=== PATIENT | female | born 1995 | race Caucasian/White ===

== ENCOUNTER 2017-01-12 16:36 | Inpatient (IN) | payer OTHER ==
[~2017-01-12 16:36] MED LIST: ISOVUE-370 76%-LOCM 1 ML ONE
[2017-01-12] MEDS ORDERED: Benzonatate 100 MG CAP ONE (16:57)
[2017-01-12] MEDS ORDERED: Azithromycin 500 MG VIAL ONE (17:38)
--- NOTE | 2017-01-12 17:38 | RAD ---
PA AND LATERAL CHEST X-RAY: 01/12/17 HISTORY: Sore throat and cough. Nasal congestion. Bodyaches. FINDINGS: There is focal area of increased patchy opacity seen within the left lower lobe as well as in the re gion of the lingula suggesting pneumonia. The right lung is clear. The cardiac silhouette and pulmon rosalind vasculature are within normal limits. Osseous structures are intact. IMPRESSION: Right middle lobe and lingular pneumonia. Followup to complete resolution is recommended. POS: [facility]
[2017-01-12 17:55] LABS: #Basophils 0.1 thou/uL (0.0-0.2); #Lymphocytes 1.1 thou/uL (1.20-3.40); #Monocytes 0.4 thou/uL (0.11-0.59); #Neutrophils 7.2 thou/uL (1.40-6.50); %Basophils 0.8 % (0.0-1.0); %Eosinophils 0.4 % (0.0-10.0); %Lymphocytes 12.6 % (28.0-48.0); %Monocytes 4.1 % (0.0-4.0); Hematocrit 37.5 % (36.0-47.0); Mean Platelet Volume 8.5 fL (7.4-10.4); Red Blood Cell (RBC) Count 4.45 mill/uL (4.00-5.20); White Blood Cell (WBC) Count 8.7 thou/uL (4.8-10.8)
[2017-01-12 18:00] LABS: Lactic Acid - Sepsis 0.9 mmol/L (0.5-2.2)
[2017-01-12 18:04] LABS: Anion Gap 14 mmol/L (10-20); BUN (Urea Nitrogen) 5 mg/dL (7.0-18.7); Calc. Creatinine Clearance 0 mL/min (70-130); Calcium 8.4 mg/dL (7.8-10.44); Carbon Dioxide 19 mmol/L (22-29); Chloride 105 mmol/L (98-107); Estimated GFR-MDRD Greater than 90
[2017-01-12] MEDS ORDERED: Ondansetron ODT 4 MG TAB SL PRN (19:17)
[2017-01-12] MEDS ORDERED: Ondansetron HCl/PF 4 MG/2 ML Vial IVP PRN ×2 (19:17→19:35)
[2017-01-12] MEDS ORDERED: Acetaminophen 325 MG TAB PO PRN ×2 (19:17→19:35)
[2017-01-12] MEDS ORDERED: Sodium Chloride 0.9% 1,000 ML IV SCH (19:30)
--- NOTE | 2017-01-12 19:32 | PDOC.EVN ---
Event Note - Event Note Event Note: [id number] h&p dictated 1. Pneumonia 2. Nausea and vomiting 3. H/O Asthma 4. Metabolic acidosis 5. h/o Anxiety plan: see orders
[2017-01-12] MEDS ORDERED: HYDROcodone/Acetaminophen 5/325 mg Tablet PO PRN (19:35)
[2017-01-12] MEDS: Enoxaparin Sodium 40 MG/0.4 ML SYRINGE SC SCH (20:16)
[2017-01-12] MEDS: cefTRIAXone\\ROCEPHIN 1 GM in Sodium Chloride 0.9% 100 ML IVPB SCH (20:18)
[2017-01-12] MEDS: Sodium Chloride 0.9% 1,000 ML IV SCH (21:00)
[2017-01-12 21:34] VITALS: BMI 32.0
[2017-01-12 21:36] LABS: LegU Control Bar Appear? YES (CONTROL BAR); LegionellaU Control Bkground? CLEAR/WHITE (CLR/WHITE); Strp pneuU Control Background? CLEAR/WHITE (CLR/WHITE); Strp pneumo Control Bar Appear YES (CONTROL BAR)
[2017-01-13] MEDS: Sodium Chloride 0.9% 1,000 ML IV SCH ×4 (03:47→18:47)
--- NOTE | 2017-01-13 06:04 | HP ---
DATE OF ADMISSION: 01/12/2017 CHIEF COMPLAINT: Fever, cough, vomiting. HISTORY OF PRESENT ILLNESS: Patient is a 21-year-old female started feeling sick on Monday, then sh e started vomiting numerous episodes and then having sore. Patient went to a PCP and patient was di agnosed having strep throat, so patient was started on cefdinir. Patient's symptoms got worse on , so she went to Urgent Care and suspected possible flow so patient was discharged on p.o. from Urgent Care. Today, patient started feeling worsening body aches, fever, chills, and cou gh, cough was with sputum production, yellow in color, onset of chest congestion also, complains of fever. The patient went to outside ER. In the outside ER, the patient was diagnosed of a pneumonia and the patient was transferred here. The patient complained of chest pain from coughing. Denies any dizziness, complains of generalized body aches, denies any diarrhea, denies any bloody stools, d enies any sick contacts, positive for strep throat exposures in the [employer]. Complains of a headach e also, mild in intensity. Headache is from all the coughing. Denies any other complaints at this time. PAST MEDICAL HISTORY: Asthma, history of pneumonia, and anxiety. PAST SURGICAL HISTORY: Ankle surgery, tonsillectomy, adenoidectomy, appendectomy. SOCIAL HISTORY: Reviewed. MEDICATIONS: Reviewed. FAMILY HISTORY: Positive for high blood pressure and COPD. REVIEW OF SYSTEMS: Constitutional: Generalized body aches. Positive for fever. Positive for chil ls. Eyes: No vision problems. Ears: Denies hearing loss. Neck: Denies neck pain. oral cavity po sitive for sore throat. Cardiovascular system: Denies any palpitations. Respiratory system: Posit kathy for pleuritic pain. Positive for cough, positive for chest congestion. Gastrointestinal: Posi tive for nausea, vomiting. Musculoskeletal: Generalized body aches. Integumentary: Denies any ra sh. Psychiatric: No anxiety at this time. Cranial nerve system: Denies syncope. All other review of systems are reviewed and are negative. PHYSICAL EXAMINATION: VITAL SIGNS: At the time of H and P performed, pulse ox 94% on room air, 99.7, blood pressure is 10 4/70. GENERAL: The patient appears tired. HEENT: Anterior nares patent. Nose is normal. Ears normal. Teeth intact. Tongue is moist. NECK: Supple, no JVD. CARDIOVASCULAR SYSTEM: S1, S2 present, tachycardic. No murmurs, no rubs, no gallops. RESPIRATORY SYSTEM: Right side, diminished breath sounds present. Left side positive for crackles. No rhonchi, no wheezing. GASTROINTESTINAL: Abdomen is soft, nontender, no guarding, no organomegaly, no masses felt. MUSCULOSKELETAL: No edema. INTEGUMENTARY: No rashes seen. PSYCHIATRIC: Mood is appropriate at this time. NEUROLOGIC SYSTEM: Cranial nerves intact. Follows commands. Strength intact, sensory intact. LABORATORY DATA: At the time of H and P performed, sodium 134, potassium 3.7, chloride 105, CO2 19, BUN of 5, creatinine 0.77. White count 8.7, hemoglobin 13.2, platelet count 210. Chest x-ray posi tive for right middle lobe and lingular pneumonia. ASSESSMENT AND PLAN: The patient is a 21 years old female: 1. Pneumonia. The patient is already an outpatient cefdinir, still not improving. We will go ahea d and start the patient on Levaquin and also on Rocephin IV q.24 h. We will monitor the patient clos rose. We will send blood cultures and sputum culture and sensitivity. We will do CT chest also, and we will consult pulmonary to evaluate the patient. 2. Metabolic acidosis, probably from decreased p.o. intake. Plan to start patient on IV fluids. M onitor bicarbonate level, repeat BMP in a.m. 3. History of asthma. Continue p.r.n. breathing treatments. 4. History of anxiety. Continue anxiolytics. 5. Headache, nausea, and vomiting. P.r.n. antiemetics and p.r.n. pain meds. The case was discussed in detail with the patient. Patient is FULL CODE.
--- NOTE | 2017-01-13 08:29 | CT ---
PRELIMINARY REPORT/[facility]/EMERGENCY AFTER HOURS PROCEDURE: EXAM: CT Chest With Intravenous Contrast CLINICAL HISTORY: 21 years old, female; Condition or disease; Other: Pnuemonia TECHNIQUE: Axial computed tomography images of the chest with intravenous contrast. Coronal reformatted images were created and reviewed. CONTRAST: 100 mL of ISOVUE administered intravenously. COMPARISON: No relevant prior studies available. FINDINGS: Lungs: There is airspace opacity in the left lower lobe with air bronchograms consistent with left l ower lobe pneumonia. Pleural space: Unremarkable. No pneumothorax. No significant effusion. Heart: Unremarkable. No cardiomegaly. No significant pericardial effusion. Bones/joints: Unremarkable. No acute fracture. No dislocation. Soft tissues: Unremarkable. Vasculature: Unremarkable. No thoracic aortic aneurysm. Lymph nodes: Unremarkable. No enlarged lymph nodes. IMPRESSION: There is airspace opacity in the left lower lobe with air bronchograms consistent with left lower lo be pneumonia. Thank you for allowing us to participate in the care of your patient. Dictated and Authenticated by: Jose Rosado MD 01/13/2017 12:13 AM Central Time ([place] \T\ [place]) FINAL REPORT CT CHEST WITH IV CONTRAST: I agree with the preliminary report given by Dr. Jose Rosado of [facility]. POS: [facility]
[2017-01-13] MEDS: Azithromycin 250 MG TAB PO SCH (09:16)
[2017-01-13] MEDS: cefTRIAXone\\ROCEPHIN 1 GM in Sodium Chloride 0.9% 100 ML IVPB SCH ×2 (09:17→20:07)
--- NOTE | 2017-01-13 10:25 | CON ---
DATE OF CONSULTATION: 01/13/2017 REASON FOR CONSULTATION: Pneumonia. 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 She developed documented strep throat earlier in the week, manifested by a sore throat and high fever. She was prescribed antibiotics, but was unable to take more than a dose because of vomiting and general malaise. She has developed cough, congestion, and productive sputum. A CT scan obtained last night demonstrated left lower lobe pneumonia. PAST MEDICAL HISTORY: Asthma and anxiety. PAST SURGICAL HISTORY: Ankle surgery, tonsillectomy, and appendectomy. SOCIAL HISTORY: Nonsmoker. Does not consume alcohol. MEDICATIONS: She is on Lexapro, control pills, and an albuterol inhaler. FAMILY MEDICAL HISTORY: Remarkable for COPD and hypertension. REVIEW OF SYSTEMS: She has had fever, chills, some nausea, some vomiting, no chest pain, no hemoptysis. No hematemesis, melena, hematochezia, hematuria, or dysuria. PHYSICAL EXAMINATION: VITAL SIGNS: Temperature 98.7, pulse 89, respirations 18, O2 saturation 98%, blood pressure 113/68. GENERAL: She is awake and alert, and in no distress. HEENT: Unremarkable. NECK: No JVD. LUNGS: Few crackles left base, right side clear. CARDIAC: S1, S2 regular. ABDOMEN: Soft, nontender. EXTREMITIES: No clubbing, cyanosis, or edema. NEUROLOGIC: Grossly intact throughout. LABORATORY DATA AND IMAGING: White blood cell count 8.7, hematocrit 37, platelet count 210. Sodium 134, potassium 3.7, chloride 105, CO2 19, BUN 5, creatinine 0.7, glucose 102. CT result is as noted above. ASSESSMENT: 1. Community-acquired pneumonia - I would not consider this as a treatment failure as she was unable to take much of her antibiotics for Strep throat. 2. PENICILLIN allergy. RECOMMENDATIONS: I would treat her with Levaquin or Zithromax for a total of 5- 7 days. MTDD
--- NOTE | 2017-01-13 15:56 | PDOC.PN ---
- Subjective Encounter Start Date: 01/13/17 Encounter Start Time: 13:25 Subjective: breathing better - Objective MAR Reviewed: Yes Vital Signs & Weight: Vital Signs (12 hours) Temp Pulse Resp BP BP Pulse Ox 01/13/17 15:48 80 20 01/13/17 11:52 97.9 F 99 16 117/72 95 01/13/17 11:20 68 20 01/13/17 08:00 98.7 F 89 18 98 01/13/17 07:32 98 01/13/17 07:29 84 20 98 01/13/17 04:00 98.8 F 89 16 113/68 95 Weight Weight 198 lb 6.656 oz Result Diagrams: 01/12/17 17:35 01/12/17 17:35 Phys Exam - Physical Examination HEENT: PERRLA, moist MMs Neck: no JVD, supple Respiratory: no wheezing, no rales Cardiovascular: RRR, no significant murmur Gastrointestinal: soft, non-tender, positive bowel sounds Musculoskeletal: no edema, pulses present Neurological: non-focal, moves all 4 limbs Psychiatric: A&O x 3 Dx/Plan (1) PNA (pneumonia) Code(s): J18.9 - PNEUMONIA, UNSPECIFIED ORGANISM Status: Acute Qualifiers: Pneumonia type: due to unspecified organism Laterality: left Lung location: lower lobe of lung Qualified Code(s): J18.1 - Lobar pneumonia, unspecified organism (2) Asthma Code(s): J45.909 - UNSPECIFIED ASTHMA, UNCOMPLICATED Status: Chronic Qualifiers: Asthma severity: mild intermittent Asthma complication type: uncomplicated Qualified Code(s): J45.20 - Mild intermittent asthma, uncomplicated (3) Obesity (BMI 30.0-34.9) Code(s): E66.9 - OBESITY, UNSPECIFIED Status: Chronic (4) Anxiety Code(s): F41.9 - ANXIETY DISORDER, UNSPECIFIED Status: Chronic - Plan is on ceftriaxone and levaquin -: viral pcr -: had +ve strep throat swab per patient -: asthma is very mild with no flares up from past many yrs * . Review of Systems - Medications/Allergies Allergies/Adverse Reactions: Allergies Allergy/AdvReac Type Severity Reaction Status Date / Time amoxicillin [From Augmentin] Allergy Unverified 01/12/17 19:16 clavulanic acid Allergy Unverified 01/12/17 19:16 [From Augmentin] Medications: Current Medications Acetaminophen (Tylenol) 650 mg PO Q4H PRN PRN Reason: Headache/Fever or Pain Hydrocodone Bitart/Acetaminophen ([place] 5/325) 1 tab PO Q4H PRN PRN Reason: Moderate Pain (4-6) Albuterol/Ipratropium (Duoneb) 3 ml IPPB [id number] [facility] Last Admin: 01/13/17 15:48 Dose: 3 ml Azithromycin (Zithromax) 500 mg PO DAILY [facility] Stop: 01/17/17 09:01 Last Admin: 01/13/17 09:16 Dose: 500 mg Enoxaparin Sodium (Lovenox) 40 mg SC 2100 [facility] Last Admin: 01/12/17 20:16 Dose: 40 mg Ceftriaxone Sodium 1 gm/ (Sodium Chloride) 100 mls @ 200 mls/hr IVPB BID [facility] Stop: 01/18/17 23:59 Last Admin: 01/13/17 09:17 Dose: 100 mls Sodium Chloride (Normal Saline 0.9%) 1,000 mls @ 150 mls/hr IV .Q6H40M [facility] Stop: 01/13/17 19:46 Last Admin: 01/13/17 09:20 Dose: 1,000 mls Ondansetron HCl (Zofran) 4 mg IVP Q6H PRN PRN Reason: Nausea/Vomiting
[2017-01-13] MEDS: Enoxaparin Sodium 40 MG/0.4 ML SYRINGE SC SCH (20:01)
[2017-01-14 07:56] VITALS: TEMP 97.9
[2017-01-14] MEDS: Azithromycin 250 MG TAB PO SCH (08:31)
[2017-01-14] MEDS: cefTRIAXone\\ROCEPHIN 1 GM in Sodium Chloride 0.9% 100 ML IVPB SCH (08:31)
--- NOTE | 2017-01-14 10:58 | PRG ---
DATE OF SERVICE: 01/14/2017 SUBJECTIVE: Patient is doing well. She is in no distress. She wants to go home. OBJECTIVE: VITAL SIGNS: On exam her temperature 97.9, pulse 87, respiration 20, O2 sat 97%, blood pressure 160 /79. HEENT: Unremarkable. NECK: No JVD. CHEST: Clear without wheezing. CARDIAC: S1 and S2 regular. ABDOMEN: Soft. EXTREMITIES: No edema. ASSESSMENT: Community-acquired pneumonia. RECOMMENDATIONS: 1. The patient can go home on either Levaquin or Zithromax. I would treat her for a total of 5 to 7 days. I told her that antibiotics could interfere with her control and I would recommend th at she use a second form of protection should she choose to be sexually active. 2. I told her not to go to the [employer] game this weekend or participating tailgating activities. She needs to rest until she goes back to class on Monday. I have instructed her to follow up in my off ice in 3 to 4 weeks for repeat chest x-ray.
--- NOTE | 2017-01-14 11:39 | PDOC.PN ---
- Subjective Encounter Start Date: 01/14/17 Encounter Start Time: 06:45 Subjective: breathing better, no sob/wheezing - Objective MAR Reviewed: Yes Vital Signs & Weight: Vital Signs (12 hours) Temp Pulse Resp BP Pulse Ox 01/14/17 08:00 97.9 F 87 20 96 01/14/17 07:55 97.9 F 87 20 116/79 96 01/14/17 06:21 88 16 98 01/14/17 02:54 84 12 Weight Weight 198 lb 6.656 oz I&O: 01/13/17 01/14/17 01/15/17 06:59 06:59 06:59 Intake Total 3740 Balance 3740 Result Diagrams: 01/12/17 17:35 01/12/17 17:35 Phys Exam - Physical Examination HEENT: PERRLA, moist MMs Neck: no JVD, supple Respiratory: no wheezing, no rales Cardiovascular: RRR, no significant murmur Gastrointestinal: soft, non-tender, positive bowel sounds Musculoskeletal: no edema, pulses present Neurological: non-focal, moves all 4 limbs Psychiatric: A&O x 3 Dx/Plan (1) PNA (pneumonia) Code(s): J18.9 - PNEUMONIA, UNSPECIFIED ORGANISM Status: Acute Qualifiers: Pneumonia type: due to unspecified organism Laterality: left Lung location: lower lobe of lung Qualified Code(s): J18.1 - Lobar pneumonia, unspecified organism (2) Asthma Code(s): J45.909 - UNSPECIFIED ASTHMA, UNCOMPLICATED Status: Chronic Qualifiers: Asthma severity: mild intermittent Asthma complication type: uncomplicated Qualified Code(s): J45.20 - Mild intermittent asthma, uncomplicated (3) Obesity (BMI 30.0-34.9) Code(s): E66.9 - OBESITY, UNSPECIFIED Status: Chronic (4) Anxiety Code(s): F41.9 - ANXIETY DISORDER, UNSPECIFIED Status: Chronic - Plan oral levaquin for 5 days -: to f/u with with cxr in 2 weeks -: hemostable -: viral pcr is -ve * . Review of Systems - Medications/Allergies Allergies/Adverse Reactions: Allergies Allergy/AdvReac Type Severity Reaction Status Date / Time amoxicillin [From Augmentin] Allergy Verified 01/13/17 17:59 clavulanic acid Allergy Verified 01/13/17 17:59 [From Augmentin] Medications: Current Medications Acetaminophen (Tylenol) 650 mg PO Q4H PRN PRN Reason: Headache/Fever or Pain Hydrocodone Bitart/Acetaminophen (Clear 5/325) 1 tab PO Q4H PRN PRN Reason: Moderate Pain (4-6) Albuterol/Ipratropium (Duoneb) 3 ml IPPB [id number] [facility] Last Admin: 01/14/17 10:27 Dose: Not Given Azithromycin (Zithromax) 500 mg PO DAILY [facility] Stop: 01/17/17 09:01 Last Admin: 01/14/17 08:31 Dose: 500 mg Enoxaparin Sodium (Lovenox) 40 mg SC 2100 [facility] Last Admin: 01/13/17 20:01 Dose: Not Given Ceftriaxone Sodium 1 gm/ (Sodium Chloride) 100 mls @ 200 mls/hr IVPB BID [facility] Stop: 01/18/17 23:59 Last Admin: 01/14/17 08:31 Dose: 100 mls Ondansetron HCl (Zofran) 4 mg IVP Q6H PRN PRN Reason: Nausea/Vomiting
[2017-01-14 11:47] VITALS: BP 123/82
--- NOTE | 2017-01-16 07:14 | DIS ---
DATE OF ADMISSION: 01/12/2017 DATE OF DISCHARGE: 01/14/2017 DISCHARGE DISPOSITION: Home. PRIMARY DISCHARGE DIAGNOSES: Left lung pneumonia, likely bacterial. SECONDARY DISCHARGE DIAGNOSES: Obesity, history of asthma, which is very mild with no recent flareu p, anxiety. PROCEDURES DONE DURING HOSPITALIZATION: CT chest done on the day of admission showed left lower lob e pneumonia. Respiratory virus panel was nonreactive, blood cultures x2 no growth. Urine for Strep pneumo antigen was negative. Urine for legionella pneumophilia antigen was negative. Urine pregna ncy test was negative. DISCHARGE PLAN: The patient to follow up with Dr. Mac in 2 weeks with a followup x-ray. BRIEF COURSE DURING HOSPITALIZATION: The patient initially got admitted with complaints of fever, c ough, nausea, and vomiting. She was diagnosed with strep throat 5 days prior to hospitalization and the patient was not able to keep her antibiotics down as an outpatient. She has had initial chest x-ray which was suspicious for left lung pneumonia and a CT of the chest done confirmed left lower l obe pneumonia. She was placed on IV antibiotics and has been transitioned to oral Levaquin at the t dev of discharge. She needs to complete an 8-day course of antibiotics and have a follow up x-ray a fter the antibiotics to see for complete resolution and follow up with Dr. Mac in 2 weeks. She is otherwise hemodynamically stable and has been cleared by Dr. Mac for discharge. Please see a face to face documentation for [facility] day [facility].
== END 2017-01-14 12:02 | disposition home or self-care (01) | DRG 194 ==
LOC: SCSER 16:36 → T4-B 17:35
PROVIDERS: ADMIT Family Medicine; ATTEND Family Medicine
DX: J15.9 Unspecified bacterial pneumonia (principal); E87.2 Acidosis; F41.9 Anxiety disorder, unspecified; J45.20 Mild intermittent asthma, uncomplicated; E66.9 Obesity, unspecified; Z68.32 Body mass index [BMI] 32.0-32.9, adult; Z88.0 Allergy status to penicillin; Z83.6 Family history of other diseases of the respiratory system
CPT/HCPCS: 36415; 71020; 71260; 80048; 81025; 83605; 85025; 87040; 87070; 87205; 87633; 87899; 94640; 96365; J0456; J0696; J1650; J1956; J7050; J7620

== ENCOUNTER 2017-07-29 13:43 | Emergency (ER) | payer BC, OTHER ==
[2017-07-29 14:07] LABS: #Basophils 0.1 thou/uL (0.0-0.2); #Eosinphils 0.5 thou/uL (0.0-0.7); #Lymphocytes 3.9 thou/uL (1.20-3.40); #Monocytes 0.4 thou/uL (0.11-0.59); #Neutrophils 4.8 thou/uL (1.40-6.50); %Basophils 0.8 % (0.0-1.0); %Eosinophils 5.6 % (0.0-10.0); %Lymphocytes 40.2 % (21.0-51.0); %Monocytes 3.6 % (0.0-10.0); %Neutrophils 49.8 % (42.0-75.0); Hemoglobin 13.3 g/dL (12.0-16.0); Mean Corpuscular Volume 88.7 fl (81.0-99.0); Mean Platelet Volume 7.5 fL (7.4-10.4); Platelet Count 272 thou/uL (130-400); RBC Distribution Width 11.3 % (11.5-14.5); Red Blood Cell (RBC) Count 4.29 mill/uL (4.20-5.40); White Blood Cell (WBC) Count 9.6 thou/uL (4.8-10.8)
[2017-07-29 14:16] LABS: Bilirubin Negative (Negative); Blood, Urine Negative (Negative); Clarity CLOUDY (Clear); Glucose, Urine (Dipstick) Negative (Negative); Leukocyte Small (Negative); Nitrite Negative (Negative); Protein, Urine (Dipstick) Negative (Neg-Trace); pH, Urine 7.5 (5.0-9.0)
[2017-07-29 14:17] LABS: Bacteria/HPF 1+ HPF (None Seen); Hyaline Casts/LPF 4-6 HYALINE CAST LPF (0-3 Hyaline); Pathc Cast-AUWi Flag 1.88 (0-2.49); RBC/HPF 0-3 HPF (0-3); WBC/HPF 21-50 HPF (0-3)
[2017-07-29 14:26] LABS: ALT (SGPT) 40 U/L (8-55); AST (SGOT) 29 U/L (5-34); Albumin 4.4 g/dL (3.5-5.0); Alkaline Phosphatase 40 U/L (40-150); Anion Gap 10 mmol/L (10-20); BUN (Urea Nitrogen) 10 mg/dL (7.0-18.7); Bilirubin, Total 0.8 mg/dL (0.2-1.2); Calc. Creatinine Clearance 0 mL/min (70-130); Calcium 9.7 mg/dL (7.8-10.44); Carbon Dioxide 28 mmol/L (22-29); Chloride 104 mmol/L (98-107); Estimated GFR-MDRD 81; Globulin 2.9 g/dL (2.4-3.5); Glucose 80 mg/dL (70-105); Lipase 7 U/L (8-78); Potassium 3.9 mmol/L (3.5-5.1); Protein, Total 7.3 g/dL (6.0-8.3); Sodium 138 mmol/L (136-145)
[2017-07-29 14:40] LABS: Pregnancy Test - Urine (BHCG) Negative (Negative); Pregu Control Background? CLEAR/WHITE (CLR/WHITE); Pregu Control Bar Appear? YES (CONTROL BAR)
--- NOTE | 2017-07-29 14:45 | ULT ---
RIGHT UPPER QUADRANT ULTRASOUND: HISTORY: Abdominal pain, nausea, and vomiting. FINDINGS: Multiple longitudinal and transverse images of the right upper quadrant of the abdomen were obtained using a multihertz curvilinear transducer. Real-time and color flow images are used to evaluate the right upper quadrant. Images demonstrate the liver to be unremarkable with no evidence of hepatic parenchymal masses or les ions. The gallbladder wall is unremarkable with no evidence of thickening. There does appear to be some echogenic material within the gallbladder lumen compatible with gallbladder sludge. NO evidence of shadowing is seen to suggest gallstones. Gallbladder wall has thickness of 2 mm. Common bile duct is of normal size measuring 3 mm. Visualized portion of the pancreas is unremarkable. The right kidney is unremarkable with no evidence of hydronephrosis. IMPRESSION: Findings suggesting gallbladder sludge. Otherwise, unremarkable right upper quadrant ultrasound. POS: [facility]
[2017-07-29] MEDS ORDERED: Ondansetron ODT 4 MG TAB ONE (15:04)
== END 2017-07-29 15:26 | disposition home or self-care (01) ==
LOC: ERS 13:43
DX: K80.20 Calculus of gallbladder without cholecystitis without obstruction (principal); N39.0 Urinary tract infection, site not specified; J45.909 Unspecified asthma, uncomplicated; F32.9 Major depressive disorder, single episode, unspecified; F41.9 Anxiety disorder, unspecified; Z79.01 Long term (current) use of anticoagulants; Z87.01 Personal history of pneumonia (recurrent); Z79.899 Other long term (current) drug therapy; Z79.891 Long term (current) use of opiate analgesic
CPT/HCPCS: 76705; 80053; 81003; 81015; 81025; 82150; 83690; 85025; 96360; Q0162

== ENCOUNTER 2017-08-03 10:55 | Outpatient (CLI) | payer BC ==
[2017-08-03 12:08] LABS: #Eosinphils 0.4 thou/uL (0.0-0.7); #Monocytes 0.4 thou/uL (0.11-0.59); #Neutrophils 5.8 thou/uL (1.40-6.50); %Basophils 0.5 % (0.0-1.0); %Eosinophils 4.1 % (0.0-10.0); %Lymphocytes 31.2 % (21.0-51.0); %Monocytes 4.2 % (0.0-10.0); Hemoglobin 13.3 g/dL (12.0-16.0); Mean Corpuscular HGB CONC 34.8 g/dL (32.0-36.0); Mean Corpuscular Hemoglobin 30.2 pg (27.0-31.0); Mean Corpuscular Volume 86.8 fl (81.0-99.0); Mean Platelet Volume 7.4 fL (7.4-10.4); Platelet Count 263 thou/uL (130-400); RBC Distribution Width 11.3 % (11.5-14.5); Red Blood Cell (RBC) Count 4.41 mill/uL (4.20-5.40); White Blood Cell (WBC) Count 9.6 thou/uL (4.8-10.8)
[2017-08-03 12:31] LABS: ALT (SGPT) 40 U/L (8-55); AST (SGOT) 24 U/L (5-34); Albumin 4.5 g/dL (3.5-5.0); Alkaline Phosphatase 46 U/L (40-150); Anion Gap 14 mmol/L (10-20); BUN (Urea Nitrogen) 7 mg/dL (7.0-18.7); Bilirubin, Total 0.3 mg/dL (0.2-1.2); Calc. Creatinine Clearance 0 mL/min (70-130); Calcium 9.5 mg/dL (7.8-10.44); Carbon Dioxide 21 mmol/L (22-29); Chloride 106 mmol/L (98-107); Estimated GFR-MDRD 78; Glucose 79 mg/dL (70-105); Protein, Total 7.5 g/dL (6.0-8.3); Sodium 137 mmol/L (136-145)
[2017-08-03 13:15] LABS: BHCG - Serum Negative (NEGATIVE); Pregs Control Background? CLEAR/WHITE (CLR/WHITE); Pregs Control Bar Appear? YES (CONTROL BAR)
== END 2017-08-03 10:56 | disposition home or self-care (01) ==
LOC: LABBT 10:55
PROVIDERS: ATTEND Surgery
DX: Z01.810 Encounter for preprocedural cardiovascular examination (principal); K80.20 Calculus of gallbladder without cholecystitis without obstruction
CPT/HCPCS: 80053; 84703; 85025

== ENCOUNTER 2017-08-04 10:43 | Day surgery (SDC) | payer BC ==
[2017-08-03 11:25] VITALS: BMI 34.7
[2017-08-04] MEDS ORDERED: Midazolam HCl 2 mg/2 ml Vial ONE ×2 (10:56→11:27)
[2017-08-04] MEDS ORDERED: Fentanyl 100 MCG/2 ML VIAL ONE ×4 (10:56→13:25)
[2017-08-04] MEDS ORDERED: Bupivacaine/Epinephrine 0.25% 30 ML VIAL ONE (11:04)
[2017-08-04] MEDS ORDERED: Iothalamate Meglumine 60% 50 ML VIAL FS ONE (11:04)
[2017-08-04] MEDS ORDERED: Levofloxacin 500 mg/D5W 100 ml Premix Bag ONE (11:21)
[2017-08-04] MEDS ORDERED: Ketorolac Tromethamine 30 MG/ML VIAL ONE (13:04)
--- NOTE | 2017-08-04 14:00 | RAD ---
PROCEDURE INTRAOPERATIVE CHOLANGIOGRAM: IMAGES: Two separate images were obtained. The final submitted image was the fluoroscopic time. FINDINGS: Submitted images demonstrate canalization of the cystic duct with contrast filling the common hepatic duct, portions of the proximal right and left hepatic ducts, the common bile duct, and duodenum. No visible filling defect is evident. Total fluoroscopic time was 8 seconds. Total exposure was 217 m Gy. IMPRESSION: Intraoperative cholangiogram without focal filling defect within the biliary ductal system to suggest CBD stone. POS: [facility]
[2017-08-04] MEDS ORDERED: HYDROcodone/Acetaminophen 5/325 mg Tablet ONE (14:27)
[2017-08-04] MEDS ORDERED: Lidocaine 1% PF 5 ML VIAL ONE (17:16)
[2017-08-04] MEDS ORDERED: Glycopyrrolate 0.2 MG/ML 5 ML SYRINGE ONE (17:16)
[2017-08-04] MEDS ORDERED: PROPOFOL 200 MG/20 ML VIAL ONE (17:16)
[2017-08-04] MEDS ORDERED: Dexamethasone 20 MG/5 ML VIAL ONE (17:16)
[2017-08-04] MEDS ORDERED: Ondansetron HCl/PF 4 MG/2 ML Vial ONE (17:16)
[2017-08-04] MEDS ORDERED: ePHEDrine/0.9% NaCl/PF SYRINGE 50 mg/10 ml ONE (17:16)
--- NOTE | 2017-08-09 15:54 | PDOC.OP ---
Operative Note - Operative Note Operative Note: PROCEDURE: Laparoscopic cholecystectomy with intraoperative cholangiogram SURGEON: Geovanny Hinojosa M.D. DATE OF PROCEDURE: 08/04/2017 PREOPERATIVE DIAGNOSIS: Cholelithiasis and cholecystitis, possible choledocholithiasis: POSTOPERATIVE DIAGNOSIS: Cholelithiasis and cholecystitis HISTORY: Patient with severe postprandial pain and food intolerance. She is found to have gallbladder sludge on ultrasound although her liver function tests were normal. Recommendation was made to proceed with laparoscopic cholecystectomy, with cholangiogram due to the severity of her symptoms. FINDINGS: White walled gallbladder with omental adhesions consistent with chronic cholecystitis, normal intraoperative cholangiogram. PROCEDURE IN DETAIL: After informed consent was obtained and appropriate preoperative antibiotics were administered, the patient was taken to the operating room and placed in the supine position and general endotracheal anesthesia was administered. The stomach was decompressed with an OG tube and the abdomen was prepped and draped in standard sterile fashion. Local anesthesia was infused to the skin and subcutaneous tissues at the umbilical level. A transverse skin incision was made. The fascia was elevated and a Veress needle was placed into the abdominal cavity without difficulty. Opening pressure was less than 5 and carbon dioxide gas easily insufflated to an intra- abdominal pressure of 15, which the patient tolerated well. The Veress needle was withdrawn and a [place] port advanced under direct vision. The abdominal cavity was carefully examined. There was no evidence of Veress needle or of trocar injury. Local anesthesia was infused to the skin and subcutaneous tissues at the epigastric, right upper quadrant, and right lateral abdominal sites and trocars were placed under direct vision of the laparoscope. The fundus of the gallbladder was grasped and retracted superiorly. Omental adhesions were taken down through the avascular plane revealing the infundibulum. The infundibulum was grasped and retracted laterally. The serosa was stripped inferiorly at the level of the neck of the gallbladder exposing the cystic duct and artery which were traced clearly to their insertion in the gallbladder. These were dissected free circumferentially and the cystic duct was clipped at the level of the neck of the gallbladder. An incision was made in the cystic duct inferior to the clip and the cystic duct was palpated with no stones palpable. Clear bile was seen to flow from the cystic duct incision. A cholangiogram catheter was introduced and placed into the cystic duct and secured with a clip. A cholangiogram was obtained which showed an adequate length of cystic duct. There was normal filling of the common bile duct with free flow of contrast into the duodenum. There was normal retrograde flow into the common hepatic duct beyond the level of the bifurcation without filling defects. The cholangiogram catheter was removed and the cystic duct clipped below the incision in the cystic duct. The cystic duct was divided between these clips and the previously placed clip. The cystic artery was clipped and divided. The gallbladder was then dissected free of the gallbladder bed using hook electrocautery. Prior to complete removal of the gallbladder from the gallbladder bed, the area of the cystic duct and artery stumps was examined. The clips were in good position completely across these structures and there was no bleeding and no leakage of bile. The gallbladder was then placed into an EndoCatch bag and drawn out through the epigastric incision. The epigastric trocar was replaced and the operative site easily irrigated to clear. There was no significant bleeding or spillage of bile. The epigastric trocar was removed and the fascia closed under direct laparoscopic vision with a 0 Vicryl suture on a GraNee needle in a [id number] manner with excellent technical result. The right upper quadrant and right lateral abdominal trocars were removed and hemostasis verified. Carbon dioxide gas was allowed to desufflate through the umbilical trocar which was then removed. The skin incisions were closed with 4- 0 subcuticular Monocryl sutures and Dermabond dressings were placed. The patient was extubated and taken to the recovery room in good condition. There were no complications. ESTIMATED BLOOD LOSS: Minimal. SPECIMEN : Gallbladder and contents.
== END 2017-08-04 15:07 | disposition home or self-care (01) ==
LOC: SDC 10:43
PROVIDERS: ATTEND Surgery
PROC: BF101ZZ Fluoroscopy of Bile Ducts using Low Osmolar Contrast (ICD-10-PCS; principal; 2017-08-04)
PROC: 0FT44ZZ Resection of Gallbladder, Percutaneous Endoscopic Approach (ICD-10-PCS; principal; 2017-08-04)
DX: K81.1 Chronic cholecystitis (principal); Z88.0 Allergy status to penicillin; Z88.1 Allergy status to other antibiotic agents; Z88.8 Allergy status to other drugs, medicaments and biological substances; Z79.899 Other long term (current) drug therapy
CPT/HCPCS: 47532; 88304; 96374; J1100; J1610; J1885; J1956; J2001; J2250; J2405; J2704; J3010; Q9961

== ENCOUNTER 2017-10-05 20:22 | Emergency (ER) | payer BC ==
[2017-10-05] MEDS ORDERED: Ondansetron HCl/PF 4 MG/2 ML Vial ONE (20:45)
[2017-10-05] MEDS ORDERED: Pantoprazole 40 MG VIAL ONE (20:45)
[2017-10-05 20:46] LABS: BHCG - Serum Negative (NEGATIVE); Pregs Control Background? CLEAR/WHITE (CLR/WHITE); Pregs Control Bar Appear? YES (CONTROL BAR)
[2017-10-05 20:57] LABS: ALT (SGPT) 76 U/L (8-55); AST (SGOT) 35 U/L (5-34); Albumin 4.5 g/dL (3.5-5.0); Alkaline Phosphatase 42 U/L (40-150); Anion Gap 16 mmol/L (10-20); BUN (Urea Nitrogen) 10 mg/dL (7.0-18.7); Bilirubin, Total 1.1 mg/dL (0.2-1.2); Calc. Creatinine Clearance 0 mL/min (70-130); Calcium 9.5 mg/dL (7.8-10.44); Carbon Dioxide 19 mmol/L (22-29); Chloride 106 mmol/L (98-107); Estimated GFR-MDRD 77; Globulin 3.1 g/dL (2.4-3.5); Glucose 100 mg/dL (70-105); Lipase 10 U/L (8-78); Protein, Total 7.6 g/dL (6.0-8.3); Sodium 137 mmol/L (136-145)
[2017-10-05 21:00] LABS: #Basophils 0.1 thou/uL (0.0-0.2); #Eosinphils 0.2 thou/uL (0.0-0.7); #Lymphocytes 1.3 thou/uL (1.20-3.40); #Monocytes 0.3 thou/uL (0.11-0.59); #Neutrophils 6.7 thou/uL (1.40-6.50); %Basophils 0.7 % (0.0-1.0); %Eosinophils 2.1 % (0.0-10.0); %Lymphocytes 15.7 % (21.0-51.0); %Neutrophils 77.6 % (42.0-75.0); Hemoglobin 14.7 g/dL (12.0-16.0); Mean Corpuscular HGB CONC 36.6 g/dL (32.0-36.0); Mean Corpuscular Hemoglobin 31.2 pg (27.0-31.0); Mean Corpuscular Volume 85.1 fL (78.0-98.0); Mean Platelet Volume 7.6 fL (7.4-10.4); Platelet Count 231 thou/uL (130-400); RBC Distribution Width 10.8 % (11.5-14.5); Red Blood Cell (RBC) Count 4.71 mill/uL (4.20-5.40); White Blood Cell (WBC) Count 8.6 thou/uL (4.8-10.8)
[2017-10-05] MEDS ORDERED: Metoclopramide HCl 10 MG/2 ML VIAL ONE (21:08)
[2017-10-05 21:34] LABS: Bilirubin Negative (Negative); Blood, Urine Negative (Negative); Clarity Slightly Cloudy (Clear); Glucose, Urine (Dipstick) Negative (Negative); Leukocyte Negative (Negative); Nitrite Negative (Negative); Protein, Urine (Dipstick) Negative (Neg-Trace); Urobilinogen 0.2 mg/dL (0.2-1.0)
== END 2017-10-05 22:05 | disposition home or self-care (01) ==
LOC: SCSER 20:22
DX: R11.2 Nausea with vomiting, unspecified (principal); R10.12 Left upper quadrant pain; R19.7 Diarrhea, unspecified; J45.909 Unspecified asthma, uncomplicated; F41.9 Anxiety disorder, unspecified; F32.9 Major depressive disorder, single episode, unspecified
CPT/HCPCS: 80053; 81003; 83690; 84703; 85025; 96365; 96372; 96375; C9113; J2405; J2765

== ENCOUNTER 2017-10-09 11:42 | Emergency (ER) | payer BC ==
[2017-10-09] MEDS ORDERED: ISOVUE-370 76%-LOCM 1 ML ONE (12:43)
[2017-10-09 13:10] LABS: #Basophils 0.1 thou/uL (0.0-0.2); #Eosinphils 0.1 thou/uL (0.0-0.7); #Lymphocytes 3.1 thou/uL (1.20-3.40); #Monocytes 0.2 thou/uL (0.11-0.59); #Neutrophils 2.8 thou/uL (1.40-6.50); %Basophils 1.5 % (0.0-1.0); %Eosinophils 2.2 % (0.0-10.0); %Lymphocytes 48.6 % (21.0-51.0); %Monocytes 3.8 % (0.0-10.0); %Neutrophils 43.9 % (42.0-75.0); Hemoglobin 12.9 g/dL (12.0-16.0); Mean Corpuscular HGB CONC 35.4 g/dL (32.0-36.0); Mean Corpuscular Hemoglobin 30.7 pg (27.0-31.0); Mean Corpuscular Volume 86.8 fL (78.0-98.0); Mean Platelet Volume 7.5 fL (7.4-10.4); Platelet Count 230 thou/uL (130-400); RBC Distribution Width 11.2 % (11.5-14.5); Red Blood Cell (RBC) Count 4.22 mill/uL (4.20-5.40); White Blood Cell (WBC) Count 6.3 thou/uL (4.8-10.8)
[2017-10-09 13:11] LABS: Bilirubin Negative (Negative); Blood, Urine Negative (Negative); Clarity CLEAR (Clear); Glucose, Urine (Dipstick) Negative (Negative); Leukocyte Negative (Negative); Nitrite Negative (Negative); Protein, Urine (Dipstick) Negative (Neg-Trace); Specific Gravity, Urine 1.007 (1.002-1.036); Urobilinogen 0.2 mg/dL (0.2-1.0); pH, Urine 6.5 (5.0-9.0)
[2017-10-09 13:14] LABS: Pregnancy Test - Urine (BHCG) Negative (Negative); Pregu Control Background? CLEAR/WHITE (CLR/WHITE); Pregu Control Bar Appear? YES (CONTROL BAR); Specific Gravity 1.007 (1.002-1.036)
[2017-10-09 13:24] LABS: ALT (SGPT) 99 U/L (8-55); AST (SGOT) 62 U/L (5-34); Albumin 4.3 g/dL (3.5-5.0); Alkaline Phosphatase 45 U/L (40-150); Anion Gap 9 mmol/L (10-20); BUN (Urea Nitrogen) 7 mg/dL (7.0-18.7); Bilirubin, Total 0.3 mg/dL (0.2-1.2); Calc. Creatinine Clearance 0 mL/min (70-130); Calcium 9.8 mg/dL (7.8-10.44); Carbon Dioxide 25 mmol/L (22-29); Chloride 107 mmol/L (98-107); Estimated GFR-MDRD Greater than 90; Glucose 87 mg/dL (70-105); Lipase 11 U/L (8-78); Potassium 3.8 mmol/L (3.5-5.1); Protein, Total 7.3 g/dL (6.0-8.3); Sodium 137 mmol/L (136-145)
--- NOTE | 2017-10-09 14:06 | CT ---
ABDOMEN AND PELVIS CT SCAN WITH IV CONTRAST: History: 22-year-old female with history of abdominal pain and vomiting. Patient had cholecystectomy previousl y. Vomiting for one week. FINDINGS: The lung bases are clear. Status post cholecystectomy. No abnormal fluid collection in the operative site region. The liver, pancreas, spleen, adrenal glands are unremarkable. No renal calculus or ob struction. There is evidence of prior appendectomy. Probable incidental small mesenteric lymph nodes without evidence for definitive adenopathy. Trace fluid in the cul-de-sac. No bowel obstruction, absc ess or other significant acute process. IMPRESSION: Status post cholecystectomy and appendectomy. Small incidental mesenteric and retroperitoneal lymph n odes without evidence for adenopathy. Trace cul-de-sac fluid. POS: [facility]
[2017-10-09] MEDS ORDERED: Promethazine HCl 25 MG/ML VIAL ONE (14:08)
[2017-10-09] MEDS ORDERED: Sucralfate 1 GM/10 ML UDCUP ONE (14:37)
[2017-10-09] MEDS ORDERED: Pantoprazole 40 MG VIAL ONE (14:37)
== END 2017-10-09 16:15 | disposition home or self-care (01) ==
LOC: ERS 11:42
DX: R11.2 Nausea with vomiting, unspecified (principal); J45.909 Unspecified asthma, uncomplicated; F41.9 Anxiety disorder, unspecified; F32.9 Major depressive disorder, single episode, unspecified; Z79.899 Other long term (current) drug therapy
CPT/HCPCS: 74177; 80053; 81003; 81025; 83690; 85025; 96365; 96366; 96375; C9113; J2550